=== PATIENT | female | born 1990 | race African-American/Black ===

== ENCOUNTER 2025-03-29 19:02 | Emergency (ER) | payer SELFPAY ==
[~2025-03-29] VITALS: Ht 154.9 cm; Wt 86.0 kg
[2025-03-29 19:19] VITALS: O2SAT 98
[2025-03-29] MEDS: ONDANSETRON 4MG ODT PO ONE (22:49)
[2025-03-29] MEDS: KETOROLAC 15MG/ML VIAL IM ONE (22:49)
[2025-03-29] MEDS ORDERED: ONDA4TAB50 MT (23:03)
[2025-03-29] MEDS ORDERED: GUAI-450 MT (23:03)
[2025-03-29] MEDS ORDERED: NIRM1TAB12 PO (23:22)
[2025-03-29 23:28] VITALS: BP 123/81; PULSE 100; RESP 16; TEMP 37.1; O2SAT 98
[2025-03-29 23:48] LABS: INFLUENZA TYPE A Presumptive Negative (Pres. Neg.)
[2025-03-29 23:49] LABS: INFLUENZA TYPE B Presumptive Negative (Pres. Neg.)
== END 2025-03-29 23:29 | disposition home or self-care (01) ==
LOC: ER 19:02
DX: U07.1 COVID-19 (principal)
CPT/HCPCS: 99283; 87426; 81025; 87804 ×2; 96372; J1885; Q0162